=== PATIENT | female | born 1965 | race Caucasian/White ===

== ENCOUNTER 2019-02-13 06:50 | Day surgery (SDC) | payer BC ==
[~2019-02-13] VITALS: Ht 157.5 cm; Wt 95.3 kg
[2019-02-13] MEDS ORDERED: SODIUM CHLORIDE 0.9% 1,000 ML IV SCH (08:30)
[2019-02-13 08:47] LABS: BASOPHILS % 0.3 % (0.0-2.0); HEMATOCRIT. 30.3 % (36.0-48.0); MEAN CORPUSCULAR HEMOGLOBIN 28.3 pg (28.0-32.0); MEAN CORPUSCULAR VOLUME 85.9 fL (81.0-99.0); MEAN PLATELET VOLUME 10.4 fl (7.4-10.4); NEUTROPHILS % 68.7 % (40.0-76.0); PLATELET 58 x1000/uL (130-400); RED BLOOD CELL COUNT 3.53 mill/uL (4.2-5.4); RED CELL DISTRIBUTION WIDTH 18.4 % (11.6-14.6)
[2019-02-13] MEDS ORDERED: DULA1.5P SQ (09:49)
[2019-02-13] MEDS ORDERED: FAMO40TA7 PO (09:49)
[2019-02-13] MEDS ORDERED: CARV3.1242 PO (09:49)
[2019-02-13] MEDS ORDERED: GLIP10TA10 PO (09:49)
[2019-02-13] MEDS ORDERED: CAND1TAB14 PO (09:49)
[2019-02-13] MEDS ORDERED: CLOP75TA4 PO (09:49)
[2019-02-13] MEDS ORDERED: METF-816 PO (09:49)
[2019-02-13] MEDS ORDERED: KETAMINE HCL 50 MG/ML 10ML ONE (10:04)
[2019-02-13] MEDS ORDERED: PROPOFOL 200MG/20ML VIAL IV ONE (10:05)
== END 2019-02-13 13:00 | disposition home or self-care (01) ==
LOC: OR 06:50
PROVIDERS: ATTEND Pathology Anatomic Pathology & Clinical Pathology
DX: D61.818 Other pancytopenia (principal); D69.6 Thrombocytopenia, unspecified; C91.12 Chronic lymphocytic leukemia of B-cell type in relapse; I10 Essential (primary) hypertension; E11.9 Type 2 diabetes mellitus without complications; E78.00 Pure hypercholesterolemia, unspecified; Z79.84 Long term (current) use of oral hypoglycemic drugs; Z79.899 Other long term (current) drug therapy; Z98.890 Other specified postprocedural states
CPT/HCPCS: 36415; 38220; 82962; 85025; 85060; 85097; 88313; J2704; J3490